=== PATIENT | male | born 1945 | race Native Hawaiian/Other Pacific Islander ===

== ENCOUNTER 2022-04-02 19:40 | Observation (INO) | payer OTHER ==
[~2022-04-02] VITALS: Ht 170.2 cm; Wt 65.3 kg
[2022-04-02 19:40] VITALS: BP 138/89; TEMP 97.6
[2022-04-02 20:00] VITALS: BP 131/79
[2022-04-02 20:19] LABS: PLATELET COUNT 279 K/uL (142-355)
[2022-04-02 20:27] LABS: POTASSIUM 4.5 mmol/L (3.6-5.2)
[2022-04-02 20:30] VITALS: BP 117/78
[2022-04-02 21:00] VITALS: BP 135/81
[2022-04-02 22:00] VITALS: BP 139/68
[2022-04-02 23:00] VITALS: BP 122/73
[2022-04-03] VITALS: BP 121/73
[2022-04-03 00:36] VITALS: BP 139/87; TEMP 97.3; Ht 170.2 cm; Wt 65.3 kg
[2022-04-03 04:00] VITALS: BP 136/75; TEMP 98.4
[2022-04-03 05:11] LABS: PLATELET COUNT 237 K/uL (142-355)
[2022-04-03 05:27] LABS: POTASSIUM 3.9 mmol/L (3.6-5.2)
[2022-04-03 08:00] VITALS: BP 108/66; TEMP 98.3
[2022-04-03] MEDS ORDERED: TRAZ100T PO (10:30)
[2022-04-03] MEDS ORDERED: MELATONIN3 M2 PO (10:31)
[2022-04-03] MEDS ORDERED: SENNOSIDES8.6 MG PO (10:31)
[2022-04-03] MEDS ORDERED: TAMS0.4C PO (10:32)
[2022-04-03] MEDS ORDERED: AMLODIPINE BESYLATE PO (10:32)
[2022-04-03] MEDS ORDERED: MAGNESIUM OXID420 MG PO (10:32)
[2022-04-03 12:00] VITALS: BP 115/59; TEMP 98
[2022-04-03] MEDS ORDERED: AMOX875T8 PO (19:39)
== END 2022-04-03 14:46 | disposition home health service (06) ==
LOC: ED 19:40 → MED/SURG 22:50
PROVIDERS: ADMIT Emergency Medicine Emergency Medical Services; ATTEND Internal Medicine
DX: N39.0 Urinary tract infection, site not specified (principal); J44.9 Chronic obstructive pulmonary disease, unspecified; Z85.038 Personal history of other malignant neoplasm of large intestine; F20.89 Other schizophrenia; R62.7 Adult failure to thrive; W18.39XA Other fall on same level, initial encounter; Y92.89 Other specified places as the place of occurrence of the external cause; R53.1 Weakness; N40.0 Benign prostatic hyperplasia without lower urinary tract symptoms; Z85.05 Personal history of malignant neoplasm of liver; I73.89 Other specified peripheral vascular diseases; E78.49 Other hyperlipidemia; I10 Essential (primary) hypertension; Z72.0 Tobacco use; B96.4 Proteus (mirabilis) (morganii) as the cause of diseases classified elsewhere
CPT/HCPCS: 36415; 80048; 80053; 81000; 83735; 84484; 85027; 87040; 87077; 87086; 87088; 87186; 87635; 93005; 94760; 96361; 96365; 99220; 99284; G0378; J0696; U0003